=== PATIENT | male | born 1985 | race Hispanic/Latino ===

== ENCOUNTER 2017-12-14 22:54 | Emergency (ER) | payer MEDICARE, MEDICAID ==
[2017-12-14 22:55] VITALS: BMI 31.4
[2017-12-14 23:02] VITALS: BP 112/86; PULSE 76; RESP 13; TEMP 97.2; O2SAT 95
--- NOTE | 2017-12-15 03:07 | ED PDOC ---
HPI: Psych/Substance Abuse Time Seen by Provider: 12/14/17 23:06 Chief Complaint (Nursing): Substance Abuse Chief Complaint (Provider): Substance Abuse History Per: Patient Onset/Duration Of Symptoms: Hrs Current Symptoms Are (Timing): Still Present Additional Complaint(s): 32 y/o male with a history of suicidal thoughts presents to the ED with substance abuse. Patient was brought in by EMS after being found by police department in a dark alley. When spoken to by police department he seemed unintelligible. Patient states he is compliant with his medications. (Xanax) He states he was wandering trying to find his children's mother because he is estranged and upset about relationship. Patient was recently hospitalized in [place]. He denies any current suicidal or homicidal thoughts. Of note, patient has had suicidal thoughts in the past and has attempted to suicide by cutting wrists once. Past Medical History Vital Signs: Last Vital Signs Temp 97.2 F L 12/14/17 22:59 Pulse 76 12/14/17 22:59 Resp 13 12/14/17 22:59 BP 112/86 12/14/17 22:59 Pulse Ox 95 12/14/17 22:59 - Medical History PMH: Anxiety, Bipolar Disorder, Depression, Schizophrenia, Seizures Denies: Diabetes, Hepatitis, HIV, HTN, Personality Disorder, Post Traumatic Stress Disorder, Chronic Kidney Disease, Sexually Transmitted Disease - Surgical History Other surgeries: Cyst removal from hand - Immunization History Hx Tetanus Toxoid Vaccination: No Hx Influenza Vaccination: No Hx Pneumococcal Vaccination: No - Home Medications Home Medications: Ambulatory Orders Medication Instructions Recorded No Known Home Med 12/13/17 - Allergies Allergies/Adverse Reactions: Allergies Allergy/AdvReac Type Severity Reaction Status Date / Time No Known Allergies Allergy Verified 12/13/17 08:30 Review of Systems ROS Statement: Except As Marked, All Systems Reviewed And Found Negative Psych: Positive for: Suicidal ideation Physical Exam - Reviewed Vital Signs Reviewed: Yes - Physical Exam Appears: Positive for: No Acute Distress Head Exam: Positive for: ATRAUMATIC Skin: Positive for: Normal Color Eye Exam: Positive for: EOMI, Normal appearance, PERRL Neck: Positive for: Normal Cardiovascular/Chest: Positive for: Regular Rate, Rhythm Respiratory: Positive for: CNT, Normal Breath Sounds Neurologic/Psych: Positive for: Alert. Negative for: Oriented - ECG O2 Sat by Pulse Oximetry: 95 Medical Decision Making Medical Decision Makin:59 Initial Impression: Substance Abuse Initial Plan: * Drug Screen * Crisis Evaluation * Accucheck Accucheck result was 193 Disposition - Disposition Forms: [employer] (Romanian)
--- NOTE | 2017-12-15 03:37 | ED PDOC ---
HPI: Psych/Substance Abuse Time Seen by Provider: 12/14/17 23:06 Chief Complaint (Nursing): Substance Abuse Chief Complaint (Provider): Substance Abuse History Per: Patient Onset/Duration Of Symptoms: Hrs Current Symptoms Are (Timing): Still Present Associated Symptoms: Suicidal Thoughts (in the past) Additional Complaint(s): 32 y/o male with a history of suicidal thoughts presents to the ED for evaluation of substance abuse. Patient was brought in by EMS after being found by the police in a dark alley. When spoken to by police department he seemed unintelligible. Patient states he is compliant with his medications (Xanax). He states he was wandering in attempt to find his children's mother because he is estranged and upset about their relationship. Per patient, he was recently hospitalized in [place] for confusion. He denies any current suicidal or homicidal thoughts. Of note, patient has had suicidal thoughts in the past and has attempted to suicide by cutting wrists. Patient is requesting to speak to CRISIS at this time. PMD: cannot recall Past Medical History Vital Signs: Last Vital Signs Temp 97.2 F L 12/14/17 22:59 Pulse 76 12/14/17 22:59 Resp 13 12/14/17 22:59 BP 112/86 12/14/17 22:59 Pulse Ox 95 12/14/17 22:59 - Medical History PMH: Anxiety, Bipolar Disorder, Depression, Schizophrenia, Seizures Denies: Diabetes, Hepatitis, HIV, HTN, Personality Disorder, Post Traumatic Stress Disorder, Chronic Kidney Disease, Sexually Transmitted Disease - Surgical History Other surgeries: Cyst removal from hand - Family History Family History: States: No Known Family Hx - Social History Drugs: Prescription medications (Xanax) - Home Medications Home Medications: Ambulatory Orders Medication Instructions Recorded No Known Home Med 12/13/17 - Allergies Allergies/Adverse Reactions: Allergies Allergy/AdvReac Type Severity Reaction Status Date / Time No Known Allergies Allergy Verified 12/13/17 08:30 Review of Systems ROS Statement: Except As Marked, All Systems Reviewed And Found Negative Psych: Positive for: Suicidal ideation (possible) Physical Exam - Reviewed Nursing Documentation Reviewed: Yes Vital Signs Reviewed: Yes - Physical Exam Appears: Positive for: Non-toxic, No Acute Distress Head Exam: Positive for: ATRAUMATIC, NORMOCEPHALIC Skin: Positive for: Normal Color, Warm, Dry Eye Exam: Positive for: EOMI, Normal appearance, PERRL Neck: Positive for: Painless ROM, Supple Cardiovascular/Chest: Positive for: Regular Rate, Rhythm Respiratory: Positive for: Normal Breath Sounds. Negative for: Decreased Breath Sounds, Accessory Muscle Use, Respiratory Distress Gastrointestinal/Abdominal: Positive for: Bowel Sounds (active x4), Soft. Negative for: Tenderness, Distended, Guarding Neurologic/Psych: Positive for: Alert, Mood/Affect (flat but cooperative). Negative for: Oriented, Aphasia, Facial Droop - ECG O2 Sat by Pulse Oximetry: 95 (RA) Pulse Ox Interpretation: Normal Medical Decision Making Medical Decision Makin:59 Initial Impression: Substance Abuse Initial Plan: Drug Screen Crisis Evaluation Accucheck Alcohol serum stat Accucheck result was 193. Patient was evaluated by crisis and was diagnosed with substance abuse as per Dr. Fletcher. 0045 Patient sleeping comfortably in ED stretcher. Pending Utox results. 0330 Patient awoken to provide urine. Patient has no physical complaints at this time and is ambulatory in ED with steady gait. 0520 Utox and ETOH reviewed. Positive for cannabis and benzodiazepines, which is consistent with patient use of Xanax. On re-evaluation, patient reports improvement of symptoms. On exam, patient remains AAOx3, in no acute distress. Lungs clear to auscultation, cardiac RRR, abdomen soft, non-tender, repeat neuro exam shows no focal findings. Patient now alert to person, place and time. Patient continues to be ambulatory in ED with steady/unassisted gait. Lab/Diagnostic results d/w the patient in great detail. Diagnosis of substance abuse d/w the patient. Based on history, exam and diagnostic results, plan will be for outpatient follow up. Patient instructed to follow-up with pmd / referral provided / the clinic in 1- 2 days without fail. Return to the emergency room at any time for any new or worsening symptoms. Patient states he fully agrees with and understands discharge instructions. States that he agrees with the plan and disposition. Verbalized and repeated discharge instructions and plan. I have given the patient opportunity to ask any additional questions. Scribe Attestation: Documented by Claus Clemente acting as a scribe Adelaiad Hutton PA-C. Scribe Attestation: All medical record entries made by the Scribe were at my direction and personally dictated by me. I have reviewed the chart and agree that the record accurately reflects my personal performance of the history, physical exam, medical decision making, and the department course for this patient. I have also personally directed, reviewed, and agree with the discharge instructions and disposition. Disposition - Clinical Impression Clinical Impression: Substance abuse - Patient ED Disposition Is Patient to be Admitted: No Counseled Patient/Family Regarding: Studies Performed, Diagnosis, Need For Followup - Disposition Referrals: [facility] [Outside] [facility] [Outside] Disposition: Routine/Home Disposition Time: 05:24 Condition: STABLE Instructions: Drug Abuse and Drug Addiction (DC) Forms: [employer] (Kiswahili) Print Language: ITALIAN - POA Present On Arrival: None Results - Lab Results Lab Results: 12/15/17 12/14/17 12/14/17 04:19 23:48 23:43 POC Glucose (mg/dL) 193 H Urine Opiates Screen Negative Urine Methadone Screen Negative Ur Barbiturates Screen Negative Ur Phencyclidine Scrn Negative Ur Amphetamines Screen Negative U Benzodiazepines Scrn Positive U Oth Cocaine Metabols Negative U Cannabinoids Screen Positive H Alcohol, Quantitative < 10
[2017-12-15 05:16] LABS: BARBITURATES, UR NEGATIVE (NEGATIVE); BENZODIAZEPINES, UR POSITIVE (NEGATIVE); OPIATES, UR NEGATIVE (NEGATIVE); PHENCYCLIDINE, UR NEGATIVE (NEGATIVE)
== END 2017-12-15 05:45 | disposition home or self-care (01) ==
LOC: H.ER 22:54
DX: F19.10 Other psychoactive substance abuse, uncomplicated (principal); R73.09 Other abnormal glucose; F20.9 Schizophrenia, unspecified; F31.9 Bipolar disorder, unspecified; F41.9 Anxiety disorder, unspecified
CPT/HCPCS: 82948; 99283; G0480